=== PATIENT | female | born 1995 | race Caucasian/White ===

== ENCOUNTER → 2019-01-14 16:27 | Outpatient (CLI) | payer OTHER, SELFPAY ==
[2015-08-17 22:21] VITALS: BMI 22.1
[2019-01-14 17:03] LABS: Absolute Lymphocyte Count 2.39 X10^3/uL (0.83-4.51); Absolute Neutrophil Count 5.6 X10^3/uL (2.0-7.7); Basophil# 0.04 X10^3/uL; Basophil% 0.5 % (0-1); Eosinophil# 0.14 X10^3/uL; Eosinophils% 1.6 % (0-5); Hematocrit 39.3 % (37-47); Lymphocyte # 2.39 X10^3/ul (4.0); Lymphocyte % 27.1 % (19-41); Mean Corp Hgb Conc 33.1 g/dL (32-36); Mean Corpuscular Volume 93.6 fL (81-99); Mean Platelet Vol. 9.5 fl (6.2-12.0); Monocyte# 0.61 X10^3/uL; Monocyte% 6.9 % (0-10); NRBC Flagged by Analyzer 0 % (0-5); Neutrophil # 5.62 X10^3/uL (2.7-7.7); Neutrophil % 63.6 % (47-70); Platelet Count 257 K/mm3 (150-450); RBC Distribution Width CV 12.2 % (11.6-14.6); RBC Distribution Width SD 41.9 fl (35.1-43.9); White Blood Count 8.8 K/mm3 (4.4-11.0)
[2019-01-14 17:46] LABS: ALB/GLOB Ratio 1.1 RATIO (0.9-2.4); AST(SGOT) 16 U/L (15-37); Alanine Aminotransfer ALT/SGPT 17 U/L (13-56); Albumin, Serum 4.1 g/dL (3.2-5.0); Alkaline Phosphatase 68 U/L (45-117); Anion Gap 7 (5-15); BUN 13 mg/dL (7-18); BUN/Creat Ratio 13.1 RATIO (10-20); Calcium,Total 8.7 mg/dL (8.5-10.1); Chloride 106 mmol/L (98-107); Creatinine, Serum 0.99 mg/dL (0.55-1.02); EST Glomerular Filtration Rate 75 mL/min (>60); Est Glom Filt Rate - Afr Amer 91 mL/min (>60); Free T3 2.7 pg/mL (2.18-3.98); Globulin 3.6 g/dL (2.2-4.2); Glucose 82 mg/dL (74-106); Potassium 3.7 mmol/L (3.5-5.1); Protein, Total 7.7 g/dL (6.4-8.2); Sodium Level 139 mmol/L (136-145); T4 Free Direct 0.93 ng/dL (0.76-1.46); Thyroid Stim Hormone (TSH) 0.51 uIU/mL (0.358-3.74)
== END ==
PROVIDERS: Family Provider Student in an Organized Health Care Education/Training Program; PCP Student in an Organized Health Care Education/Training Program; Referring Provider Student in an Organized Health Care Education/Training Program; Visit Provider Student in an Organized Health Care Education/Training Program
DX: N92.6 Irregular menstruation, unspecified (principal)
CPT/HCPCS: 36415; 80053; 84439; 84443; 84481; 85025

== ENCOUNTER → 2019-12-23 | Outpatient (CLI) | payer OTHER, SELFPAY ==
[2015-08-17 22:21] VITALS: BMI 22.1
[2019-12-26 08:20] LABS: Hepatitis B Surface Antibody Reactive
== END | disposition home or self-care (01) ==
LOC: MTLAB 12:31
PROVIDERS: PCP Student in an Organized Health Care Education/Training Program; Referring Provider Student in an Organized Health Care Education/Training Program; Visit Provider Student in an Organized Health Care Education/Training Program
DX: Z78.9 Other specified health status (principal)
CPT/HCPCS: 36415; 86706

== ENCOUNTER → 2020-08-31 14:50 | Outpatient (CLI) | payer OTHER, SELFPAY ==
[2015-08-17 22:21] VITALS: BMI 22.1
[2020-09-04 20:10] LABS: QNTFERON TB Mitogen Value > 10.00 IU/mL (.); QNTFERON TB Nil Value 0.01 IU/mL (.); QNTFERON TB1+ Ag Value 0.01 IU/mL (.); QNTFERON TB2+ Ag Value 0.01 IU/mL (.)
[2020-09-05 15:00] LABS: QNTIFERON TB Positive Criteria Negative (Negative)
== END ==
PROVIDERS: PCP Student in an Organized Health Care Education/Training Program; Referring Provider Student in an Organized Health Care Education/Training Program; Visit Provider Student in an Organized Health Care Education/Training Program
DX: Z11.1 Encounter for screening for respiratory tuberculosis (principal)
CPT/HCPCS: 36415; 86480

== ENCOUNTER → 2020-11-23 10:38 | Outpatient (CLI) | payer OTHER, SELFPAY ==
[2020-11-23 12:18] LABS: Absolute Lymphocyte Count 2.01 X10^3/uL (0.83-4.51); Absolute Neutrophil Count 3.4 X10^3/uL (2.0-7.7); Basophil# 0.02 X10^3/uL; Basophil% 0.3 % (0-1); Eosinophil# 0.14 X10^3/uL; Eosinophils% 2.3 % (0-5); Hematocrit 38.4 % (37-47); Hemoglobin 12.7 g/dL (12.0-15.0); Lymphocyte # 2.01 X10^3/ul (0.83-4.51); Lymphocyte % 33.7 % (19-41); Mean Corp Hgb Conc 33.1 g/dL (32-36); Mean Corpuscular Hgb 30.6 pg (27.0-32.0); Mean Corpuscular Volume 92.5 fL (81-99); Mean Platelet Vol. 10.1 fl (6.2-12.0); Monocyte# 0.37 X10^3/uL; Monocyte% 6.2 % (0-10); NRBC Flagged by Analyzer 0 % (0-5); Neutrophil # 3.41 X10^3/uL (2.7-7.7); Neutrophil % 57.3 % (47-70); Platelet Count 314 K/mm3 (150-450); RBC Distribution Width CV 12.2 % (11.6-14.6); RBC Distribution Width SD 41.7 fl (35.1-43.9); Red Blood Count 4.15 M/mm3 (4.2-5.4)
[2020-11-23 12:49] LABS: hCG Titer Quant., Serum < 1 mIU/mL (1-3)
== END ==
PROVIDERS: PCP Student in an Organized Health Care Education/Training Program; Visit Provider Student in an Organized Health Care Education/Training Program
DX: R00.2 Palpitations (principal)
CPT/HCPCS: 36415; 84702; 85025

== ENCOUNTER → 2020-12-07 08:51 | Outpatient (CLI) | payer OTHER, SELFPAY ==
--- NOTE | 2020-12-10 18:04 | PCM.TILTTABL ---
Physician Tilt Table Report Patient's Physicians Primary Care Physician: Jeferson Zamudio Indications/Diagnosis: Syncope Procedure Comments: The patient was brought to the noninvasive lab in the postabsorptive nonsedated state. Informed consent was obtained. Initial vitals demonstrated a heart rate of 86 bpm and a blood pressure 136/71 mmHg. The patient was then assessed and an EKG performed which demonstrated normal sinus rhythm with a rate of 82 bpm. The patient was then put in the 70 degree upright tilt position and was monitored. She continued to complain of dizziness and lightheadedness throughout the recording. The minimum heart rate noted was 84 bpm with the lowest blood pressure being 110/77 mmHg. After 20 minutes in this position the patient was brought back to the recumbent position and monitored. No significant EKG or rhythm abnormalities were noted. Summary: Negative tilt table test with no evidence of abnormal response.
== END ==
PROVIDERS: PCP Student in an Organized Health Care Education/Training Program; Referring Provider Student in an Organized Health Care Education/Training Program; Visit Provider Student in an Organized Health Care Education/Training Program
DX: R00.2 Palpitations (principal); R42 Dizziness and giddiness
CPT/HCPCS: 93660; J7040; A4216

== ENCOUNTER 2021-05-01 13:25 | Outpatient (CLI) | payer OTHER, SELFPAY ==
[2021-05-01 16:48] LABS: Thyroid Stim Hormone (TSH) 0.96 uIU/mL (0.358-3.74)
[2021-05-03 22:07] LABS: QNTFERON TB Mitogen Value > 10.00 IU/mL (.); QNTFERON TB Nil Value 0.05 IU/mL (.); QNTFERON TB1+ Ag Value 0.03 IU/mL (.); QNTFERON TB2+ Ag Value 0.02 IU/mL (.)
[2021-05-03 22:18] LABS: QNTIFERON TB Positive Criteria Negative (Negative)
== END 2021-05-01 23:59 | disposition home or self-care (01) ==
PROVIDERS: PCP Student in an Organized Health Care Education/Training Program; Referring Provider Nurse Practitioner Family; Visit Provider Internal Medicine Cardiovascular Disease
DX: Z02.0 Encounter for examination for admission to educational institution (principal)
CPT/HCPCS: 36415; 84443; 86480

== ENCOUNTER → 2021-07-25 | Outpatient (CLI) | payer OTHER, SELFPAY ==
--- NOTE | 2021-07-25 12:45 | ECHOD_ITS ---
Reason For Study: ARRYTHMIA Procedure This was a 2D Doppler, Color Flow transthoracic echocardiogram. Exam performed in department. Left Ventricle Normal LV size. Left ventricular systolic function is normal. No regional wall motion abnormalities noted. Right Ventricle Normal RV size. Normal systolic function. Atria Normal left atrium. Normal right atrium. Mitral Valve Normal mitral valve. Tricuspid Valve Normal tricuspid valve. Aortic Valve Normal aortic valve. Trisinus/trileaflet aortic valve. Pulmonic Valve Normal pulmonic valve. Great Vessels Normal aortic root. The pulmonary artery is normal size. Inferior vena cava collapse with sniff. Pericardium/Pleural No pericardial effusion. MMode/2D Measurements & Calculations LVIDd: 4.7 cm IVSd: 0.83 cm Ao root diam: 2.6 cm LVIDs: 2.5 cm LVPWd: 1.2 cm RVDd: 3.1 cm FS: 47.4 % LAV(MOD-bp): 53.6 ml LVAd ap4: 31.6 cm2 SV(MOD-sp4): 60.5 ml LAV(MOD-bp) Indexed: 28.8 ml/m2 LVLd ap4: 8.4 cm LAV(MOD-sp2): 56.5 ml EDV(MOD-sp4): 101.2 ml LAV(MOD-sp4): 48.9 ml EDV(sp4-el): 100.7 ml LVAs ap4: 17.8 cm2 LVLs ap4: 6.8 cm ESV(MOD-sp4): 40.7 ml ESV(sp4-el): 39.5 ml EF(MOD-sp4): 59.8 % EF(sp4-el): 60.8 % SV(sp4-el): 61.3 ml LA A4 area: 18.0 cm2 LA dimension(2D): 3.0 cm RA A4 area: 11.7 cm2 Doppler Measurements & Calculations MV E max jefe: 85.7 cm/sec Lat Peak E' Jefe: 16.0 cm/sec Med Peak E' Jefe: 13.1 cm/sec MV A max jefe: 69.0 cm/sec E/E' lat: 5.3 E/E' med: 6.5 MV E/A: 1.2 Ao V2 max: 133.9 cm/sec LV V1 max: 123.4 cm/sec PA V2 max: 106.9 cm/sec Ao max P.2 mmHg LV V1 max P.1 mmHg ECHO/Echo Complete Interpretation Summary Normal LV size. Left ventricular systolic function is normal. Structurally normal valves. Ordering Physician: Van Wilson Referring Physician: Van Wilson Performed By: Guerita Low RCS
[2021-07-27 15:08] LABS: QNTFERON TB Mitogen Value > 10.00 IU/mL (.); QNTFERON TB Nil Value 0 IU/mL (.); QNTFERON TB1+ Ag Value 0 IU/mL (.); QNTFERON TB2+ Ag Value 0 IU/mL (.)
[2021-07-28 08:37] LABS: QNTIFERON TB Positive Criteria Negative (Negative)
== END | disposition home or self-care (01) ==
PROVIDERS: PCP Student in an Organized Health Care Education/Training Program; Referring Provider Internal Medicine Cardiovascular Disease; Visit Provider Internal Medicine Cardiovascular Disease
DX: R00.2 Palpitations (principal); Z11.1 Encounter for screening for respiratory tuberculosis
CPT/HCPCS: 36415; 86480; 93306

== ENCOUNTER → 2022-02-12 | Outpatient (CLI) | payer OTHER, SELFPAY ==
[2022-02-12 13:44] LABS: Hematocrit 37.8 % (37-47); Hemoglobin 12.3 g/dL (12.0-15.0); Mean Corp Hgb Conc 32.5 g/dL (32-36); Mean Corpuscular Hgb 29.7 pg (27.0-32.0); Mean Corpuscular Volume 91.3 fL (81-99); Mean Platelet Vol. 9.6 fl (6.2-12.0); Platelet Count 321 K/mm3 (150-450); RBC Distribution Width CV 12.7 % (11.6-14.6); RBC Distribution Width SD 41.9 fl (35.1-43.9); Red Blood Count 4.14 M/mm3 (4.2-5.4); White Blood Count 6.2 K/mm3 (4.4-11.0)
[2022-02-12 14:01] LABS: T3 Total - Triiodothyronine 1.56 ng/mL (0.6-1.81); Vitamin B12 247 pg/mL (211-911); Vitamin D,25 Hydroxy 29.2 ng/mL
[2022-02-12 14:07] LABS: ALB/GLOB Ratio 0.8 RATIO (0.9-2.4); AST(SGOT) 10 U/L (15-37); Alanine Aminotransfer ALT/SGPT 14 U/L (13-56); Albumin, Serum 3.2 g/dL (3.2-5.0); Alkaline Phosphatase 68 U/L (45-117); Anion Gap 4 (5-15); BUN 13 mg/dL (7-18); BUN/Creat Ratio 14.4 RATIO (10-20); Calcium,Total 8.8 mg/dL (8.5-10.1); Chloride 107 mmol/L (98-107); EST Glomerular Filtration Rate 81 mL/min (>60); Est Glom Filt Rate - Afr Amer 98 mL/min (>60); Ferritin 14 ng/mL (8-252); Globulin 4.2 g/dL (2.2-4.2); Glucose 75 mg/dL (74-106); Iron 83 ug/dL (50-170); Iron Binding Capacity,Total 490 ug/dL (250-450); Potassium 3.7 mmol/L (3.5-5.1); Protein, Total 7.4 g/dL (6.4-8.2); Sodium Level 138 mmol/L (136-145); Thyroid Stim Hormone (TSH) 0.53 uIU/mL (0.358-3.74)
== END | disposition home or self-care (01) ==
LOC: LAB 12:05
PROVIDERS: PCP Student in an Organized Health Care Education/Training Program; Referring Provider Nurse Practitioner Family; Visit Provider Nurse Practitioner Family
DX: R00.2 Palpitations (principal); R42 Dizziness and giddiness; R00.0 Tachycardia, unspecified
CPT/HCPCS: 36415; 80053; 82306; 82607; 82728; 83540; 83550; 84439; 84443; 84480; 85027

== ENCOUNTER → 2022-07-15 | Outpatient (CLI) | payer OTHER, SELFPAY ==
--- NOTE | 2022-07-15 16:30 | RAD_ITS ---
STUDY: X-RAY - RIGHT KNEE REASON FOR EXAM: Female, 26 years old. Knee pain. TECHNIQUE: 2 view(s) of the knee. COMPARISON: December 2015. FINDINGS: Normal visualized distal femur. Normal visualized proximal tibia and fibula. Normal proximal tibiofibular articulation. Normal medial femorotibial compartment. Normal lateral femorotibial compartment. Normal patellofemoral articulation. Normal soft tissues. RAD/Knee 4 or More Views IMPRESSION: Normal study. Electronically Signed: Walter Spangler MD at 16:16 EDT ,
--- NOTE | 2022-07-15 16:33 | RAD_ITS ---
EXAM: XR LEFT KNEE, 1 OR 2 VIEWS CLINICAL INDICATION: pain TECHNIQUE: Frontal and/or lateral views of the left knee. COMPARISON: No relevant prior studies available. FINDINGS: BONES/JOINTS: Unremarkable. No acute fracture. No subluxation. Normal alignment. Preservation of the joint space. No sclerotic or destructive changes observed. SOFT TISSUES: Unremarkable. No soft tissue swelling or gas. No radiopaque foreign body. RAD/Knee 1 or 2 Views IMPRESSION: Negative left knee x-rays. Electronically Signed: Andrea Fang MD at 19:45 EDT ,
== END | disposition home or self-care (01) ==
LOC: MTRAD 16:05
PROVIDERS: PCP Student in an Organized Health Care Education/Training Program; Referring Provider Nurse Practitioner Family; Visit Provider Nurse Practitioner Family
DX: M25.561 Pain in right knee (principal); G89.29 Other chronic pain
CPT/HCPCS: 73560; 73564

== ENCOUNTER 2022-08-13 13:30 | Outpatient (RCR) | payer OTHER, SELFPAY ==
--- NOTE | 2022-07-15 16:26 | HP.PTEVAL_ITS ---
Patient's Visit Information KATHERINE MIDDLETON is a 26 year old F referred to Physical Therapy by LAVINIA Batista with a diagnosis of CHRONIC RIGHT KNEE PAIN. Date of Evaluation: 07/15/22 Physical Therapist: Clayton Klein, PT, Cert MDT, OCS - Visit Plan Frequency: 2x /Week Duration: 4 Weeks Plan: PT INTERVENTIONS PRE'S QUADS/HAMSTRINGS /HIP CKA ,FUNCTIONAL STRENGTHENING AND MODALTIES FOR PAIN - Subjective This 26 y/o female presents to physical therapy for right chronic knee pain. Patient has knee pain ~ 12 years which has been intermittent with pain worse ~ 2weeks . Patient seen and recommended Naproxen. Patient waiting on x-rays. Dr suspects possible meniscus. Aggravating factors squatting/kneeling, walking uneven ground . Alleviating factors rest /medication. Patient sleeping good. Denies paresthesia/tingling -. Patient played soccer in college .No catching/popping. patient has lateral soft tissue /edema. Patient pain causes impairments with ADLS and job demands. Patient goals to have no pain. SOCAIL: . VOCATION: OT - Pain Right Knee Pain Intensity (Out of 10): 2 Pain Intensity Range: 10 Comment: 7/10 WORST - Objective POSTURE: mild knee valgus. GAIT: reciprocal pattern. 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 FLEXABILITY: hamstrings WFL. AROM: 0-140 degrees supine flexion. MMT: ( peak force) quads right 28.2,hamstrings 23,9 ,hip flexion 30.2 ,hip abduction 24.7 - Balance/Special Test Scores Lower Extremity Functional Score: 58 - Goals Goal 1:: Patient to be I with HEP for knee Goal Time Frame: 4-6 Weeks Goal 2:: Patient to demonstrate 50% improvement with decrease pain for function. Goal Time Frame: 4-6 Weeks Goal 3:: Patient to improve peak force quads/hip by 5-10 to improve function and walking on uneven surfaces Goal Time Frame: 4-6 Weeks Goal 4:: Patient to improve LFES score by 5 points or > to improve QOL and function Goal Time Frame: 4-6 Weeks - Rehabilitation Potential Physical Therapy Diagnosis: Patient has knee pain with lateral aspect with possible signs lateral meniscus with weakness quads ,hip with deficits with kneeling and squatting thus benefit from skilled PT Rehabilitation Potential: Good - Anticipated Interventions Patient/Client Instruction: Educate patient on: Condition, Plan of Care For the Purpose of:: To decrease pain, To increase ROM, To improve muscle performance and motor function, To improve ability to perform ADL's, To increase tolerance to activity/condition/position, To improve ability of physical actions for home/community/work/leisure, To improve health of tissue, To decrease soft tissue restriction, To increase flexibility/ROM Therapeutic Exercise to Include: Strength training, Endurance training, Balance training, Flexibilty training, Passive ROM, Active ROM Comment: quads/hams/hip For the Purpose of:: To decrease pain, To increase ROM, To improve muscle performance and motor function, To increase tolerance to activity/condition/position, To improve ability of physical actions for home/community/work/leisure, To improve health of tissue, To decrease soft tissue restriction, To increase flexibility/ROM TENS: Yes IF ES: No Cryotherapy (ice pack, ice massage): Yes Thermo therapy (hot pack): Yes Ultrasound (thermal/non thermal): Yes For the Purpose of:: To decrease pain, To increase ROM, To improve nutrient delivery to tissue, To increase oxygenation perfusion, To improve health of tissue, To decrease soft tissue restriction Thank you for the opportunity to evaluate your patient. For Medicare and Medicare HMO plans, please review the plan of care and approve it. It will need to be FAXED BACK to us at [phone] for Medicare purposes. For Medicare only, by signing this I certify the plan of care. Please let me know if there are questions or concerns regarding this plan of care. Physician Signature: ___Date:
--- NOTE | 2022-08-13 13:53 | HP.PTDCSUM ---
It has been my pleasure to treat KATHERINE MIDDLETON referred by LAVINIA Batista, with the diagnosis of CHRONIC RIGHT KNEE PAIN for a total of 9 visit(s). Discharge Date: 08/13/22 Please see the following information for a summary of their discharge status. Subjective: Plan for MRI. Some improvement with strength. Squatting and long walks. pops with knee extension Right Knee Pain Intensity (Out of 10): 3 % Improvement: 0 Objective/Function: POSTURE: mild knee valgus. GAIT: reciprocal pattern. 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 FLEXABILITY: hamstrings WFL. AROM: 0-140 degrees supine flexion. MMT: ( peak force) quads right 55.3,hamstrings 50.9 ,hip flexion 30.2 ,hip abduction 38.7 Goal 1:: Patient to be I with HEP for knee Goal 2:: Patient to demonstrate 50% improvement with decrease pain for function. Goal Progress: Progressing Goal 3:: Patient to improve peak force quads/hip by 5-10 to improve function and walking on uneven surfaces Goal Progress: Goal Met Goal 4:: Patient to improve LFES score by 5 points or > to improve QOL and function Goal Progress: Progressing Plan: PLAN FOR MRI If there are questions or concerns regarding this patient's physical therapy, please feel free to call me at [phone]. Thank you for the referral of this patient. Sincerely, Clayton Klein, PT, Cert MDT, OCS Balance/Gait/Functional tests - Balance/Special Test Scores Lower Extremity Functional Score: 60
== END 2022-08-13 19:00 | disposition home or self-care (01) ==
LOC: PT 13:30
PROVIDERS: PCP Student in an Organized Health Care Education/Training Program; Referring Provider Nurse Practitioner Family; Visit Provider Nurse Practitioner Family
DX: M25.561 Pain in right knee (principal); G89.29 Other chronic pain
CPT/HCPCS: 97110; 97162; 97530

== ENCOUNTER → 2022-08-30 | Outpatient (CLI) | payer OTHER, SELFPAY ==
--- NOTE | 2022-08-30 10:22 | MRI_ITS ---
INDICATION: CHRONIC LATERAL RT KNEE PAIN, EFFUSION EXAMINATION: MRI - RIGHT MR Knee W/O Contrast TECHNIQUE: Multiplanar and multisequence MR images of the RIGHT knee. IV Contrast Dosage and Agent: None. COMPARISON: 07/15/2022 x-ray FINDINGS: BONE: No fracture or abnormal bone marrow signal. Failure of fat suppression in the patella. JOINT: No pathologic effusion, synovial hypertrophy, or intra-articular body. MUSCLES: Unremarkable. MENISCI: There is cystic change in the body of the lateral meniscus with extension to the lateral and inferior surfaces. Normal appearance of the medial meniscus. CRUCIATE LIGAMENTS: Anterior and posterior cruciate ligaments are intact. COLLATERAL LIGAMENTS: Medial collateral ligament and lateral collateral ligamentous complex, inclusive of the popliteal tendon, are intact. CARTILAGE: Articular cartilage intact. OTHER SOFT TISSUES: Unremarkable. No popliteal cyst. 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 No significant joint effusion. Electronically Signed: Colt Merino MD at 19:20 EDT ,
== END | disposition home or self-care (01) ==
PROVIDERS: PCP Student in an Organized Health Care Education/Training Program; Referring Provider Student in an Organized Health Care Education/Training Program; Visit Provider Student in an Organized Health Care Education/Training Program
DX: M25.561 Pain in right knee (principal); G89.29 Other chronic pain; M25.461 Effusion, right knee
CPT/HCPCS: 73721